=== PATIENT | female | born 1955 | race Two or more races ===

== ENCOUNTER 2018-12-03 07:00 | Day surgery (SDC) | payer OTHER ==
[~2018-12-03] VITALS: Ht 160 cm; Wt 68.5 kg
[2018-12-04] MEDS ORDERED: NEURONTIN300 MG PO (08:40)
[2018-12-04] MEDS ORDERED: ANALPRAM HC 2.530 GM TOP (08:41)
[2018-12-04] MEDS ORDERED: ULTRACET PO (08:41)
== END 2018-12-04 08:00 | disposition home or self-care (01) ==
LOC: CIR.AMB 07:00 → SURH 07:19 → O/R 07:19 → SURH 09:15 → EDSTATUS 09:15 → SURH 12:15 → O/R 13:14 → SURH 13:14 → CIR.AMB 12-04 08:00 → SURH 12-04 11:24 → O/R 12-04 11:24
DX: N81.6 Rectocele (principal); K59.02 Outlet dysfunction constipation; K60.1 Chronic anal fissure

== ENCOUNTER 2021-08-02 07:42 | Day surgery (SDC) | payer OTHER ==
[~2021-08-02 07:42] MED LIST: ANALPRAM HC 2.530 GM TOP; NEURONTIN300 MG PO; ULTRACET PO
== END 2021-08-02 11:40 | disposition home or self-care (01) ==
LOC: AMB-ENDOS 07:42
PROVIDERS: ATTEND Surgery
DX: K60.1 Chronic anal fissure (principal); K59.02 Outlet dysfunction constipation; K57.30 Diverticulosis of large intestine without perforation or abscess without bleeding; K64.8 Other hemorrhoids